=== PATIENT | male | born 1970 | race Caucasian/White ===

== ENCOUNTER 2019-09-16 12:35 | Emergency (ER) | payer MEDICARE ==
[~2019-09-16] VITALS: Ht 185.4 cm; Wt 81.5 kg
--- NOTE | 2019-09-16 13:27 | PHYS DOC ---
General Adult EDM: Chief Complaint: URINARY RETENTION HPI: HPI: 48-year-old male presents from Dr. Barksdale's office with increased peripheral swelling, urinary retention for 24 hours, and no dialysis for 2 weeks. Patient gotten infected central catheter so they removed it and his vascular access for dialysis. He was recently in the hospital at and had 4 L of fluid taken off. He is here today because he is swelling again and he has moderate pain. The abdominal pain is a pressure and cramping sensation. He has been unable to urinate for the last 1 day. He denies fevers or chills. Review of Systems: Review of Systems: Constitutional: Denies fever or chills Eyes: Denies change in visual acuity HENT: Denies nasal congestion or sore throat Respiratory: Denies cough or shortness of breath Cardiovascular: Denies chest pain or edema GI: Generalized abdominal pain.denies nausea, vomiting, bloody stools or diarrhea : Urinary retention Musculoskeletal: Denies back pain or joint pain Integument: Denies rash Neurologic: Denies headache, focal weakness or sensory changes Endocrine: Denies polyuria or polydipsia Lymphatic: Denies swollen glands Psychiatric: Denies depression or anxiety Heart Score: Risk Factors: Risk Factors: DM, Current or recent (<one month) smoker, HTN, HLP, family history of CAD, obesity. Risk Scores: Score 0 - 3: 2.5% MACE over next 6 weeks - Discharge Home Score 4 - 6: 20.3% MACE over next 6 weeks - Admit for Clinical Observation Score 7 - 10: 72.7% MACE over next 6 weeks - Early Invasive Strategies Current Medications: Current Meds: Current Medications Medications (Trade) Dose Ordered Sig/[facility] Start Time Stop Time Status Last Admin Dose Admin Morphine Sulfate (Morphine 4mg Syringe) 4 mg 1X ONCE 09/16/19 13:30 09/16/19 13:31 UNV Ondansetron HCl (Zofran) 4 mg 1X ONCE 09/16/19 13:30 09/16/19 13:31 UNV Allergies: Allergies: Allergies Coded Allergies Type Severity Reaction Last Updated Verified Penicillins Allergy Severe 09/16/19 Yes amoxicillin Allergy Severe 09/16/19 Yes clavulanic acid Allergy Severe 09/16/19 Yes idarubicin Allergy Severe 09/16/19 Yes Physical Exam: PE: Constitutional: Well developed, well nourished, no acute distress, non-toxic appearance. [] HENT: Normocephalic, atraumatic, bilateral external ears normal, oropharynx moist, no oral exudates, nose normal. [] Eyes: PERRLA, EOMI, conjunctiva normal, no discharge. [] Neck: Normal range of motion, no tenderness, supple, no stridor. [] Cardiovascular:Heart rate regular rhythm, no murmur [] Lungs & Thorax: Bilateral breath sounds clear to auscultation [] Abdomen: Bowel sounds normal, soft, abdominal swelling without heart distention, no masses, no pulsatile masses. [] Skin: Warm, dry, no erythema, no rash. [] Back: No tenderness, no CVA tenderness. [] Extremities: No tenderness, no cyanosis, no clubbing, ROM intact, 2+ peripheral edema bilaterally. [] Neurologic: Alert and oriented X 3, normal motor function, normal sensory function, no focal deficits noted. [] Psychologic: Affect normal, judgement normal, mood normal. [] EKG: EKG: Sinus rhythm, rate 90, normal axis, no ST elevations or depressions. [] Radiology/Procedures: Radiology/Procedures: [] Course & Med Decision Making: Course & Med Decision Making Pertinent Labs and Imaging studies reviewed. (See chart for details) The patient's labs are significant for an elevated BNP, creatinine, and BUN. He also has significantly elevated liver enzymes consistent with hepatitis. The patient did finally urinate about a liter without a catheter. He still obviously needs drainage of fluid either by dialysis or paracentesis or both. I spoke with Dr. Jean about the patient and he has accepted him for transfer and admission to [facility]. The patient will go by ambulance. 32 minutes of critical care time was spent on this patient exclusive of other billable procedures. Dragon Disclaimer: DragCell-A-Spot Disclaimer: This electronic medical record was generated, in whole or in part, using a voice recognition dictation system. Departure Departure: Impression: Primary Impression: Urinary retention Additional Impressions: Acute kidney failure Qualified Codes: N17.9 - Acute kidney failure, unspecified Volume overload Qualified Codes: E87.79 - Other fluid overload Hepatitis Disposition: XFER T-FORMERLY [facility] Admitting Physician: Moi Jean Condition: STABLE Referrals: SOLITARIO BARKSDALE MD (PCP) Justification of Admission: Justification of Admission: Justification of Admission Dx: N/A GERMAN PHELAN DO Sep 16, 2019 13:26
[2019-09-16] MEDS ORDERED: MORPHINE SULFATE 4 MG/ML DISP.SYRIN. IV ONE (13:30)
[2019-09-16] MEDS ORDERED: ONDANSETRON PF 4 MG/2 ML VIAL. IVP ONE (13:30)
[2019-09-16 13:36] LABS: BASO # 0.1 x10^3/uL (0.0-0.2); BASO % 1 % (0-3); EOS # 0.2 x10^3/uL (0.0-0.7); EOS % 3 % (0-3); HEMATOCRIT 32.4 % (39.0-53.0); HEMOGLOBIN 10.8 g/dL (13.0-17.5); LYMPH % 18 % (24-48); MEAN CORPUSCULAR HEMOGLOBIN 30 pg (25-35); MEAN CORPUSCULAR HGB CONC 33 g/dL (31-37); MEAN CORPUSCULAR VOLUME 91 fL (79-100); MONO # 0.7 x10^3/uL (0.0-1.1); MONO % 13 % (0-9); NEUT # 3.7 x10^3uL (1.8-7.7); NEUT % 65 % (31-73); PLATELET COUNT 175 x10^3/uL (140-400); RED BLOOD COUNT 3.57 x10^6/uL (4.30-5.70); RED CELL DISTRIBUTION WIDTH 15.7 % (11.5-14.5); WHITE BLOOD COUNT 5.7 x10^3/uL (4.0-11.0)
[2019-09-16 13:48] LABS: CALCIUM 7.9 mg/dL (8.5-10.1); CREATININE 2.3 mg/dL (0.7-1.3); GFR 30.5; POTASSIUM 4.5 mmol/L (3.5-5.1)
[2019-09-16 13:54] LABS: ALBUMIN 2.1 g/dL (3.4-5.0); ALBUMIN/GLOBULIN RATIO 0.5 (1.0-1.7); TOTAL BILIRUBIN 0.2 mg/dL (0.2-1.0); TOTAL PROTEIN 6.1 g/dL (6.4-8.2)
--- NOTE | 2019-09-16 13:58 | EKG ---
[address] [address] Test Date: 2019-09-16 Test Time: 12:43:53 Pat Name: REID ARMENTA Department: Room: Gender: M Emergency Management Consultant: : 1970 Requested By: GERMAN PHELAN Order Number: [id number] Reading MD: Measurements Intervals [place] Rate: 90 P: 27 ME: 166 QRS: 8 QRSD: 80 T: 56 QT: 364 QTc: 449 Interpretive Statements SINUS RHYTHM LEFT ATRIAL ABNORMALITY ABNORMAL ECG RI6.02 No previous ECG available for comparison
[2019-09-16 15:25] LABS: BACTERIA,URINE 0 /HPF (0-FEW); BILIRUBIN,URINE NEG (NEG); CLARITY,URINE CLEAR; COLOR,URINE YELLOW; GLUCOSE,URINE NEG (NEG); NITRITE,URINE NEG (NEG); RBC,URINE OCC /HPF (0-2); UROBILINOGEN,URINE 0.2 mg/dL (0.2 mg/dL); WBC,URINE OCC /HPF (0-4)
[2019-09-16 18:11] VITALS: BP 160/101
== END 2019-09-16 19:07 | disposition short-term general hospital (02) ==
LOC: ER 12:35
DX: N17.9 Acute kidney failure, unspecified (principal); E87.79 Other fluid overload; K75.9 Inflammatory liver disease, unspecified; R33.9 Retention of urine, unspecified; Z88.0 Allergy status to penicillin; Z88.1 Allergy status to other antibiotic agents; Z88.8 Allergy status to other drugs, medicaments and biological substances
CPT/HCPCS: 36415; 80053; 81001; 83880; 84484; 85025; 85610; 85730; 93005; 96374; 96375; 99291; J2270; J2405

== ENCOUNTER 2020-03-29 17:59 | Emergency (ER) | payer MEDICARE ==
[~2020-03-29] VITALS: Ht 185.4 cm; Wt 81.0 kg
[2020-03-29 19:03] LABS: BASO % 1 % (0-3); EOS # 0.4 x10^3/uL (0.0-0.7); EOS % 6 % (0-3); HEMATOCRIT 35.1 % (39.0-53.0); HEMOGLOBIN 11.6 g/dL (13.0-17.5); LYMPH # 1.2 x10^3/uL (1.0-4.8); LYMPH % 20 % (24-48); MEAN CORPUSCULAR HEMOGLOBIN 30 pg (25-35); MEAN CORPUSCULAR HGB CONC 33 g/dL (31-37); MEAN CORPUSCULAR VOLUME 91 fL (79-100); MONO # 0.6 x10^3/uL (0.0-1.1); MONO % 9 % (0-9); NEUT # 3.9 x10^3uL (1.8-7.7); NEUT % 65 % (31-73); PLATELET COUNT 151 x10^3/uL (140-400); RED BLOOD COUNT 3.86 x10^6/uL (4.30-5.70); RED CELL DISTRIBUTION WIDTH 14.3 % (11.5-14.5); WHITE BLOOD COUNT 6.1 x10^3/uL (4.0-11.0)
--- NOTE | 2020-03-29 19:17 | PHYS DOC ---
Past History Past Medical History: Diabetes, High Cholesterol, Hypertension, Renal Failure Additional Past Medical Histor: West Nile Virus, Menengitis, Encephalopathy Past Surgical History: No Surgical History Alcohol Use: None Adult General Chief Complaint Chief Complaint: OTHER COMPLAINTS HPI HPI Patient is a 49-year-old male who presents stating " I need dialysis". 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 He was previously established with nephrology and local primary care physician locally but states he traveled to [place] approximately 2 months ago and suffered extensive hospitalization there. He reports he was septic with "staph and something else" infection and was there for "a few weeks" receiving IV antibi otics. Reports he was discharged approximately 10 days ago from [facility] which is the last time he had hemodialysis. He states he typically has dialysis Thursday and Thursday. He admits increased weight gain, fluid buildup in abdomen and overall malaise. Denies any fever, COVID-19 contact, chest pain, shortness of breath, cough, abdominal pain, urinary symptoms, changes in motor or sensory function. He typically does not make much urine but states his urine production has decreased over the past week. He states he tried to call [facility] nephrology group but given that he has hepatitis B, he is " waiting for an isolation chair... They will not get me in until early March". Review of Systems Review of Systems Fourteen body systems of review of systems have been reviewed. See HPI for pertinent positives and negative responses, other glass all other systems are negative, non-pertinent or non-contributory Allergies Allergies Allergies Coded Allergies Type Severity Reaction Last Updated Verified Penicillins Allergy Severe 09/16/19 Yes amoxicillin Allergy Severe 09/16/19 Yes clavulanic acid Allergy Severe 09/16/19 Yes idarubicin Allergy Severe 09/16/19 Yes Physical Exam Physical Exam Constitutional: Well developed, well nourished, no acute distress, non-toxic appearance. HENT: Normocephalic, atraumatic, bilateral external ears normal, oropharynx moist, no oral exudates, nose normal. Eyes: PERRLA, EOMI, conjunctiva normal, no discharge. Neck: Normal range of motion, no tenderness, supple, no stridor. Cardiovascular: Heart rate regular, sinus rhythm, no murmurs rubs or gallops. Right chest HD cath well-appearing Lungs & Thorax: Bilateral breath sounds clear to auscultation Abdomen: Bowel sounds normal, soft, no tenderness, no masses, no pulsatile masses. Nonsurgical abdomen, no peritoneal signs Skin: Warm, dry, no erythema, no rash. Back: No tenderness, no CVA tenderness. Extremities: No tenderness, no cyanosis, no clubbing, ROM intact, no edema. Neurologic: Alert and oriented X 3, grossly normal motor & sensory function, no focal deficits noted. Psychologic: Anxious affect, judgement normal, depressed mood Current Patient Data Vital Signs Vital Signs Date Time Temp Pulse Resp B/P (MAP) Pulse Ox O2 Delivery O2 Flow Rate FiO2 03/29/20 19:01 98.4 97 22 159/132 (141) 99 Room Air Lab Results Laboratory Tests Test 03/29/20 18:45 White Blood Count 6.1 x10^3/uL Red Blood Count 3.86 x10^6/uL Hemoglobin 11.6 g/dL Hematocrit 35.1 % Mean Corpuscular Volume 91 fL Mean Corpuscular Hemoglobin 30 pg Mean Corpuscular Hemoglobin Concent 33 g/dL Red Cell Distribution Width 14.3 % Platelet Count 151 x10^3/uL Neutrophils (%) (Auto) 65 % Lymphocytes (%) (Auto) 20 % Monocytes (%) (Auto) 9 % Eosinophils (%) (Auto) 6 % Basophils (%) (Auto) 1 % Neutrophils # (Auto) 3.9 x10^3uL Lymphocytes # (Auto) 1.2 x10^3/uL Monocytes # (Auto) 0.6 x10^3/uL Eosinophils # (Auto) 0.4 x10^3/uL Basophils # (Auto) 0.0 x10^3/uL Sodium Level 140 mmol/L Potassium Level 4.7 mmol/L Chloride Level 111 mmol/L Carbon Dioxide Level 22 mmol/L Anion Gap 7 Blood Urea Nitrogen 44 mg/dL Creatinine 3.0 mg/dL Estimated GFR (Cockcroft-Gault) 22.4 BUN/Creatinine Ratio 15 Glucose Level 139 mg/dL Calcium Level 7.8 mg/dL Phosphorus Level 3.7 mg/dL Magnesium Level 1.7 mg/dL Total Bilirubin 0.2 mg/dL Aspartate Amino Transf (AST/SGOT) 60 U/L Alanine Aminotransferase (ALT/SGPT) 58 U/L Alkaline Phosphatase 125 U/L Total Protein 6.4 g/dL Albumin 2.2 g/dL Albumin/Globulin Ratio 0.5 EKG EKG EKG ordered and interpreted by myself at 1904 hrs. as sinus rhythm at 80 bpm, unremarkable intervals, no axis deviation, no peaked T waves, no acute ischemic findings, no STEMI Radiology/Procedures Radiology/Procedures EXAM: CHEST 1 VIEW History: Shortness of breath COMPARISON: None available. TECHNIQUE: Single portable radiograph of the chest FINDINGS: Mild cardiomegaly. Right-sided dialysis catheter is identified. The costophrenic sulci are clear and well demarcated.. Trace right pleural effusion. IMPRESSION: 1. Trace right pleural effusion. 2. Mild cardiomegaly. 3. Right-sided dialysis catheter is identified. Electronically signed by: Josué Gr MD (03/29/2020 8:16 PM) [id number] Heart Score HEART Score for Chest Pain: HEART Score for Chest Pain Response (Comments) Value History Slighlty/Non-Suspicious 0 ECG Normal 0 Age >45 - < 65 1 Risk Factors 1 or 2 Risk Factors 1 Total 2 Risk Factors: Risk Factors: DM, Current or recent (<one month) smoker, HTN, HLP, family history of CAD, obesity. Risk Scores: Risk Factors: DM, Current or recent (<one month) smoker, HTN, HLP, family history of CAD, obesity. Course & Med Decision Making Course & Med Decision Making Discussed with the patient all findings and diagnostic testing. I discussed most likely diagnosis of end-stage renal disease not requiring emergent admission and/or transport to outlying facility for dialysis. I contacted [facility] nephrology group and spoke with Dr. Villegas, case was reviewed and it was recommended that patient present to [facility] ER tomorrow for evaluation, laboratory analysis to be performed similar to what was obtained today with other labs such as hepatitis. Nephrology will be contacted and patient will subsequently be set up for outpatient hemodialysis treatments on a regular basis. I discussed this conversation with patient who remained relatively asymptomatic and hemodynamically stable while in my ER, he was agreeable to discharge with instructions to present to [facility] ER tomorrow for evaluation and further medical management. I did disclose that if any concerning signs or symptoms present prior to [facility] evaluation tomorrow that he should return immediately for repeat evaluation and medical work-up as indicated. Strict return precautions were also discussed at length with good understanding by patient. Patient voiced understanding and agreement with the plan. Hemodynamically stable, ambulatory and well-appearing at time of disposition. Dragon Disclaimer Dragon Disclaimer This electronic medical record was generated, in whole or in part, using a voice recognition dictation system. Departure Departure: Impression: Primary Impression: ESRD (end stage renal disease) Disposition: 01 DC HOME SELF CARE/HOMELESS Condition: GOOD Referrals: SOLITARIO BARKSDALE MD (PCP) Patient Instructions: End Stage Kidney Disease Additional Instructions: As discussed prior to ER departure, you were advised to follow-up with [facility] emergency room tomorrow to get further ER work-up performed so you can be set up with [facility]'s nephrology team and be resimulated back into local hemodialysis unit. As discussed today, your physical exam and entire work-up was grossly nonconcerning for any emergent and/or surgical pathology. With that said, if you experience any decline in your condition please do not hesitate to come back to our ER for repeat evaluation. It was a pleasure to take care of you today and I wish you the best going forward ZAID COATES DO Mar 29, 2020 19:17
[2020-03-29 19:44] LABS: CALCIUM 7.8 mg/dL (8.5-10.1); GFR 22.4; POTASSIUM 4.7 mmol/L (3.5-5.1)
[2020-03-29 19:50] LABS: ALBUMIN 2.2 g/dL (3.4-5.0); ALBUMIN/GLOBULIN RATIO 0.5 (1.0-1.7); MAGNESIUM 1.7 mg/dL (1.8-2.4); PHOSPHORUS 3.7 mg/dL (2.6-4.7); TOTAL BILIRUBIN 0.2 mg/dL (0.2-1.0); TOTAL PROTEIN 6.4 g/dL (6.4-8.2)
--- NOTE | 2020-03-29 20:18 | RAD ---
EXAM: CHEST 1 VIEW History: Shortness of breath COMPARISON: None available. TECHNIQUE: Single portable radiograph of the chest FINDINGS: Mild cardiomegaly. Right-sided dialysis catheter is identified. The costophrenic sulci are clear and well demarcated.. Trace right pleural effusion. IMPRESSION: 1. Trace right pleural effusion. 2. Mild cardiomegaly. 3. Right-sided dialysis catheter is identified. Electronically signed by: Josué Gr MD (03/29/2020 8:16 PM) [id number]
[2020-03-29] MEDS ORDERED: ACETAMINOPHEN 325 MG TABLET PO ONE (20:30)
[2020-03-29 20:35] VITALS: BP 196/104
--- NOTE | 2020-03-29 21:36 | EKG ---
[address] [address] Test Date: 2020-03-29 Test Time: 19:00:22 Pat Name: REID ARMENTA Department: Room: Gender: M Installations Inspector: ANGELICA : 1970 Requested By: ZAID COATES Order Number: [id number] Reading MD: Measurements Intervals [place] Rate: 80 P: 49 [place]: 160 QRS: 14 QRSD: 82 T: 74 QT: 400 QTc: 465 Interpretive Statements SINUS RHYTHM T ABNORMALITY IN HIGH LATERAL LEADS ABNORMAL ECG RI6.02 No previous ECG available for comparison
== END 2020-03-29 20:45 | disposition home or self-care (01) ==
LOC: ER 17:59
DX: N18.6 End stage renal disease (principal); E11.9 Type 2 diabetes mellitus without complications; E78.00 Pure hypercholesterolemia, unspecified; I10 Essential (primary) hypertension; Z88.0 Allergy status to penicillin; Z88.1 Allergy status to other antibiotic agents; Z88.8 Allergy status to other drugs, medicaments and biological substances
CPT/HCPCS: 36415; 71045; 80053; 83735; 84100; 85025; 93005; 99285

== ENCOUNTER 2021-01-15 14:54 | Emergency (ER) | payer MEDICARE ==
[~2021-01-15] VITALS: Ht 185.4 cm; Wt 74.4 kg
[2021-01-15] MEDS ORDERED: IV NORMAL SALINE 1,000ML 1,000 ML IV ONE (15:30)
--- NOTE | 2021-01-15 15:42 | PHYS DOC ---
Past History Past Medical History: Diabetes, High Cholesterol, Hypertension, Renal Failure Additional Past Medical Histor: West Nile Virus, Menengitis, Encephalopathy (BISHNU MONSON APRN) Past Surgical History: No Surgical History (BISHNU MONSON APRN) Alcohol Use: None (BISHNU MONSON APRN) General Adult EDM: Chief Complaint: SHORTNESS OF BREATH HPI: HPI: Patient is a 50-year-old male presents with hematemesis. "I have puked up chunks of blood a couple of times since yesterday". Patient is also reporting shortness of breath. Patient states he has history of PEs and has been out of his Eliquis for a month. History of hypertension, kidney failure, leukemia. (BISHNU MONSON APRN) Review of Systems: Review of Systems: Constitutional: Denies fever or chills Eyes: Denies change in visual acuity HENT: Denies nasal congestion or sore throat Respiratory: Reports shortness of breath. Denies cough. Cardiovascular: Denies chest pain or edema GI: Denies abdominal pain, nausea, vomiting, bloody stools or diarrhea : Denies dysuria Musculoskeletal: Denies back pain or joint pain Integument: Denies rash Neurologic: Denies headache, focal weakness or sensory changes Endocrine: Denies polyuria or polydipsia Lymphatic: Denies swollen glands Psychiatric: Denies depression or anxiety (BISHNU MONSON APRN) Current Medications: Current Meds: Current Medications Medications (Trade) Dose Ordered Sig/[facility] Start Time Stop Time Status Last Admin Dose Admin Sodium Chloride 1,000 ml @ 1,000 mls/hr 1X ONCE 01/15/21 15:30 01/15/21 16:29 (BISHNU MONSON APRN) Allergies: Allergies: Allergies Coded Allergies Type Severity Reaction Last Updated Verified Penicillins Allergy Severe 09/16/19 Yes amoxicillin Allergy Severe 09/16/19 Yes clavulanic acid Allergy Severe 09/16/19 Yes idarubicin Allergy Severe 09/16/19 Yes (BISHNU MONSON APRN) Physical Exam: PE: Constitutional: Well developed, well nourished, no acute distress, non-toxic appearance. [] HENT: Normocephalic, atraumatic, bilateral external ears normal, oropharynx kim [address], no oral exudates, nose normal. [] Eyes: PERRLA, EOMI, conjunctiva normal, no discharge. [] Neck: Normal range of motion, no tenderness, supple, no stridor. [] Cardiovascular:Heart rate sinus tachycardia, no murmur [] Lungs & Thorax: Bilateral breath sounds clear to auscultation [] Abdomen: Bowel sounds normal, soft, no tenderness, no masses, no pulsatile masses. [] Skin: Warm, dry, no erythema, no rash. [] Back: No tenderness, no CVA tenderness. [] Extremities: No tenderness, no cyanosis, no clubbing, ROM intact, no edema. [] Neurologic: Alert and oriented X 3, normal motor function, normal sensory function, no focal deficits noted. [] Psychologic: Affect normal, judgement normal, mood normal. [] (BISHNU MONSON APRN) EKG: EKG: Sinus Tachycardia, 133 BPM, no STEMI, Read by at 1621[] (BISHNU MONSON APRN) Radiology/Procedures: Radiology/Procedures: []XR CHEST 1V CLINICAL INDICATIONS: Shortness of breath COMPARISON: March 29, 2020. Findings: Diffuse bilateral pulmonary edema is seen worse on the right side. Small bilateral pleural effusions are seen. No pneumothorax is evident. Heart size is prominent. Cephalization of pulmonary flow is seen. The mediastinum is unremarkable. Hemodialysis catheter is unchanged in position. IMPRESSION: Moderate CHF or fluid overload. Electronically signed by: Deng Duarte MD (01/15/2021 4:55 PM) [id number] CT angiogram chest with contrast PQRS statement: CT scans at this facility use dose reduction including either automated exposure control, iterative reconstructions, and /or weight based radiation dosing via mA and kV modification when appropriate to reduce radiation dose to as low as reasonably achievable. Contrast: 99 mL Isovue-370 intravenous contrast with 3-D MIP reconstructions of the arteries acquired. HISTORY: Shortness of breath, hypoxia, dialysis. FINDINGS: Surface irregularity of the liver as well as atrophy likely indicate cirrhosis. Mild right pleural effusion. Moderate left pleural effusion. Right jugular dialysis catheter tip right atrium. Mild cardiomegaly. Ascending aorta diameter 3.6 cm. Extensive left coronary calcified plaque. Esophagus unremarkable. There is mild mediastinal and hilar adenopathy largest lymph node subcarinal station measures 2 x 3 cm. Enlarged main pulmonary artery diameter 4.0 cm. Loss of contrast density within the dependent basilar lower lobe pulm onary arterial branches likely indicate small peripheral segmental pulmonary artery emboli. No large central pulmonary artery embolus or saddle embolus. Pulmonary interstitial edema. Groundglass opacities likely alveolar edema. Asymmetric nodular opacities with some areas of consolidation throughout the right lung could be asymmetric edema or multilobar pneumonia. Bones are unremar kable. IMPRESSION: 1. Bilateral lower lobe posterior basilar small segmental pulmonary emboli. No large central pulmonary artery embolus. 2. Left greater than right pleural effusions and pulmonary edema. 3. Asymmetric nodular opacities with areas of consolidation throughout the right lung could represent asymmetric pulmonary edema or multilobar pneumonia. 4. Mediastinal and hilar adenopathy. 5. Other incidental findings as described above. FOR INTERNAL CODING PURPOSES Critical result: Critical results were called to ED physician Dr. Tete Willard by Dr. Mohsen Sexton at 01/15/2021 5:07 PM. RESULT CODE: (C) (BISHNU MONSON APRN) Heart Score: C/O Chest Pain: No Risk Factors: Risk Factors: DM, Current or recent (<one month) smoker, HTN, HLP, family history of CAD, obesity. Risk Scores: Score 0 - 3: 2.5% MACE over next 6 weeks - Discharge Home Score 4 - 6: 20.3% MACE over next 6 weeks - Admit for Clinical Observation Score 7 - 10: 72.7% MACE over next 6 weeks - Early Invasive Strategies (BISHNU MONSON APRN) Course & Med Decision Making: Course & Med Decision Making Pertinent Labs and Imaging studies reviewed. (See chart for details) [] 50-year-old male presents with hematemesis, shortness of breath. Patient states he has had multiple PEs in the past and has been off his Eliquis for a week. Patient is supposed to be getting dialysis 3 days a week, but states he has been unable to get in for one month. Patient has a history of PE's and had to be admitted to the ICU in the past for treatment. BUN 71, Creat 6.4, WBC, 16.8. Hgb 10.1, Hct 31.1. Lactic 2.1. Chest x-ray suspicious for pneumonia and fluid overload. Nitro drip started along with Levofloxacin, Cefepime, and Vancomycin. CTA shows PE, lower left lobe. Heparin drip started/ Discussed results with patient. Explained to patient that he was going to need to be transferred to [facility] for dialysis and anticogulant treatment. Patient agrees with transfer plan. Spoke with Dr. Dempsey at [facility] who is accepting patient in ICU for HAP, PE, CKD, CHF. (BISHNU MONSON APRN) Course & Med Decision Making I personally evaluated this patient and agree with documentation. I supervised the plan of care Critical care time was 35 minutes which includes time at bedside, spent in discussion of patient's care with specialists and/or family members, with interpretation of laboratory and/or radiological studies and is exclusive of procedures. (TETE WILLARD DO) Dragon Disclaimer: Dragjesika Disclaimer: This electronic medical record was generated, in whole or in part, using a voice recognition dictation system. (BISHNU MONSON APRN) Departure Departure: Impression: Primary Impression: HAP (hospital-acquired pneumonia) Additional Impressions: Pulmonary embolism Qualified Codes: I26.99 - Other pulmonary embolism without acute cor pulmonale Chronic kidney disease (CKD) Qualified Codes: N18.6 - End stage renal disease; Z99.2 - Dependence on renal dialysis CHF (congestive heart failure) Qualified Codes: I50.9 - Heart failure, unspecified Disposition: 02 SHORT TERM HOSPITAL Admitting Physician: Other (BISHNU MONSON APRN) Condition: STABLE Referrals: SOLITARIO BARKSDALE MD (PCP) BISHNU MONSON APRN Jan 15, 2021 15:42 TETE WILLARD DO Jan 18, 2021 00:36
[2021-01-15 16:36] LABS: BASO # 0.1 x10^3/uL (0.0-0.2); BASO % 0 % (0-3); EOS % 0 % (0-3); HEMATOCRIT 31.1 % (39.0-53.0); HEMOGLOBIN 10.1 g/dL (13.0-17.5); LYMPH % 6 % (24-48); MEAN CORPUSCULAR HEMOGLOBIN 30 pg (25-35); MEAN CORPUSCULAR HGB CONC 32 g/dL (31-37); MEAN CORPUSCULAR VOLUME 91 fL (79-100); MONO # 1.2 x10^3/uL (0.0-1.1); MONO % 7 % (0-9); NEUT # 14.5 x10^3uL (1.8-7.7); NEUT % 87 % (31-73); PLATELET COUNT 290 x10^3/uL (140-400); RED BLOOD COUNT 3.42 x10^6/uL (4.30-5.70); RED CELL DISTRIBUTION WIDTH 15.9 % (11.5-14.5); WHITE BLOOD COUNT 16.8 x10^3/uL (4.0-11.0)
[2021-01-15 16:39] LABS: CALCIUM 7.9 mg/dL (8.5-10.1); CREATININE 6.4 mg/dL (0.7-1.3); GFR 9.3; POTASSIUM 4.8 mmol/L (3.5-5.1)
--- NOTE | 2021-01-15 16:44 | EKG ---
[address] [address] Test Date: 2021-01-15 Test Time: 16:15:03 Pat Name: REID ARMENTA Department: Room: Gender: M Senior Applications Developer: LEIGHANN : 1970 Requested By: BISHNU MONSON Order Number: [id number] Reading MD: Rob Jurado MD Measurements Intervals [place] Rate: 133 P: 27 [place]: 116 QRS: 7 QRSD: 86 T: 77 QT: 300 QTc: 448 Interpretive Statements SINUS TACHYCARDIA LEFT ATRIAL ABNORMALITY T ABNORMALITY IN HIGH LATERAL LEADS ABNORMAL ECG Electronically Signed On 01-16-2021 17:33:02 CDT by Rob Jurado MD
[2021-01-15 16:45] LABS: ALBUMIN 2.3 g/dL (3.4-5.0); ALBUMIN/GLOBULIN RATIO 0.5 (1.0-1.7); TOTAL PROTEIN 7.4 g/dL (6.4-8.2)
--- NOTE | 2021-01-15 16:58 | RAD ---
XR CHEST 1V CLINICAL INDICATIONS: Shortness of breath COMPARISON: March 29, 2020. Findings: Diffuse bilateral pulmonary edema is seen worse on the right side. Small bilateral pleural effusions are seen. No pneumothorax is evident. Heart size is prominent. Cephalization of pulmonary f low is seen. The mediastinum is unremarkable. Hemodialysis catheter is unchanged in position. IMPRESSION: Moderate CHF or fluid overload. Electronically signed by: Deng Duarte MD (01/15/2021 4:55 PM) [id number]
--- NOTE | 2021-01-15 17:12 | RAD ---
CT angiogram chest with contrast PQRS statement: CT scans at this facility use dose reduction including either automated exposure cont rol, iterative reconstructions, and /or weight based radiation dosing via mA and kV modification when appropriate to reduce radiation dose to as low as reasonably achievable. Contrast: 99 mL Isovue-370 intravenous contrast with 3-D MIP reconstructions of the arteries acquired . HISTORY: Shortness of breath, hypoxia, dialysis. FINDINGS: Surface irregularity of the liver as well as atrophy likely indicate cirrhosis. Mild right pleural effusion. Moderate left pleural effusion. Right jugular dialysis catheter tip right atrium. M ild cardiomegaly. Ascending aorta diameter 3.6 cm. Extensive left coronary calcified plaque. Esophagu s unremarkable. There is mild mediastinal and hilar adenopathy largest lymph node subcarinal station measures 2 x 3 cm. Enlarged main pulmonary artery diameter 4.0 cm. Loss of contrast density within th e dependent basilar lower lobe pulmonary arterial branches likely indicate small peripheral segmental pulmonary artery emboli. No large central pulmonary artery embolus or saddle embolus. Pulmonary inte rstitial edema. Groundglass opacities likely alveolar edema. Asymmetric nodular opacities with some a reas of consolidation throughout the right lung could be asymmetric edema or multilobar pneumonia. Micheal reji are unremarkable. IMPRESSION: 1. Bilateral lower lobe posterior basilar small segmental pulmonary emboli. No large central pulmonar y artery embolus. 2. Left greater than right pleural effusions and pulmonary edema. 3. Asymmetric nodular opacities with areas of consolidation throughout the right lung could represent asymmetric pulmonary edema or multilobar pneumonia. 4. Mediastinal and hilar adenopathy. 5. Other incidental findings as described above. FOR INTERNAL CODING PURPOSES Critical result: Critical results were called to ED physician Dr. Lalo Willard by Dr. Mohsen Sexton at 01/15/2021 5:07 PM. RESULT CODE: (C) Electronically signed by: Tavo Leigh MD (01/15/2021 5:10 PM) [facility]
[2021-01-15] MEDS ORDERED: HEPARIN for IV BOLUS 10,000 UNIT/10 ML VIAL. IV ONE (17:15)
[2021-01-15] MEDS ORDERED: HEPARIN 25,000UTS/250ML PREMIX 250 ML IV PRN (17:15)
[2021-01-15] MEDS ORDERED: HEPARIN for IV BOLUS 10,000 UNIT/10 ML VIAL. IV PRN ×3 (17:15)
[2021-01-15] MEDS ORDERED: IOHEXOL 350 MG/ML 100 ML VIAL. IV ONE (17:15)
[2021-01-15] MEDS ORDERED: IV NORMAL SALINE 50ML 50 ML ONE (17:15)
[2021-01-15] MEDS ORDERED: cefTRIAXone SODIUM 1 GM VIAL ONE (17:15)
[2021-01-15] MEDS ORDERED: NITROGLYCERIN PREMIX 250 ML IV ONE (17:30)
[2021-01-15 17:54] VITALS: BP 202/146
[2021-01-15 18:01] LABS: % LYMPHS 6 % (24-48); % MONOS 6 % (0-10); % SEGS 88 % (35-66); PLT ESTIMATE ADEQUATE (ADEQUATE)
[2021-01-16] MEDS ORDERED: CEFEPIME HCL 1 GM in IV NORMAL SALINE 50ML 50 ML IV SCH (09:00)
== END 2021-01-15 18:40 | disposition short-term general hospital (02) ==
LOC: ER 14:54
DX: J18.9 Pneumonia, unspecified organism (principal); I26.99 Other pulmonary embolism without acute cor pulmonale; E11.22 Type 2 diabetes mellitus with diabetic chronic kidney disease; I12.9 Hypertensive chronic kidney disease with stage 1 through stage 4 chronic kidney disease, or unspecified chronic kidney disease; N18.9 Chronic kidney disease, unspecified; E78.5 Hyperlipidemia, unspecified; Z20.822 Contact with and (suspected) exposure to COVID-19; Y95 Nosocomial condition
CPT/HCPCS: 36415; 71045; 71275; 80053; 83605; 83880; 85007; 85025; 85610; 85730; 86850; 86900; 86901; 87040; 87426; 93005; 96365; 96375; 99285; C9803; J0696; J1644; Q9967; U0003

== ENCOUNTER 2021-04-06 08:24 | Emergency (ER) | payer MEDICARE ==
[~2021-04-06] VITALS: Ht 185.4 cm; Wt 74.4 kg
--- NOTE | 2021-04-06 08:44 | PHYS DOC ---
Past History Past Medical History: Diabetes, High Cholesterol, Hypertension, Renal Failure Additional Past Medical Histor: West Nile Virus, Menengitis, Encephalopathy, leukemia,dialysis, PE Past Surgical History: Other Alcohol Use: None Adult General Chief Complaint Chief Complaint: DIALYSIS PROBLEM HPI HPI Patient is a 50-year-old male presenting via POV requesting dialysis. 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 Reports he has been on dialysis for approximately 1 year, was previously on peritoneal dialysis but recently has been receiving dialysis through right anterior chest HD cath Wednesdays and Fridays. Reports his last day of hemodialysis was 3 days prior at his typical dialysis center managed by [facility]. 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 Reports he went to [facility] yesterday and was seen and evaluated as he missed his dialysis session in the morning and during the middle of the ER visit, it was reported that patient had an open chair at his local HD center and so patient was discharged. He did not make it to said dialysis center for HD. States he called his fisher scallop this morning who advised him that given his level of shortness of breath to present to nearest ER for evaluation prompting him to come here. Patient knew that [facility] did not have dialysis capabilities but checked in stating that " you guys can just transfer me". States he has been at baseline health otherwise, he is not vaccinated against COVID-19 Review of Systems Review of Systems Fourteen body systems of review of systems have been reviewed. See HPI for pertinent positives and negative responses, other glass all other systems are negative, non-pertinent or non-contributory Allergies Allergies Allergies Coded Allergies Type Severity Reaction Last Updated Verified Penicillins Allergy Severe 09/16/19 Yes amoxicillin Allergy Severe 09/16/19 Yes clavulanic acid Allergy Severe 09/16/19 Yes idarubicin Allergy Severe 09/16/19 Yes Physical Exam Physical Exam Constitutional: Appears older than stated age, in moderate respiratory distress due to anxiety/hyperventilation HENT: Normocephalic, atraumatic, bilateral external ears normal, oropharynx moist, no oral exudates, nose normal. Eyes: PERRLA, EOMI, conjunctiva normal, no discharge. Neck: Normal range of motion, no tenderness, supple, no stridor. Cardiovascular: Heart rate regular, sinus rhythm, no murmurs rubs or gallops, HD cath present to right anterior chest Lungs & Thorax: Tachypneic with increased work of breathing, bibasilar crackles present Abdomen: Bowel sounds normal, soft, no tenderness, no masses, no pulsatile masses. Nonsurgical abdomen, no peritoneal signs Skin: Warm, dry, no erythema, no rash. There is significant ecchymosis around bili from reported peritoneal dialysis Back: No tenderness, no CVA tenderness. Extremities: No tenderness, no cyanosis, no clubbing, ROM intact, no edema. Neurologic: Alert and oriented X 3, grossly normal motor & sensory function, no focal deficits noted. Psychologic: Anxious affect and mood Current Patient Data Vital Signs Vital Signs Date Time Temp Pulse Resp B/P (MAP) Pulse Ox O2 Delivery O2 Flow Rate FiO2 04/06/21 08:24 100.6 120 60 180/119 (139) 100 Nasal Cannula 4.0 Vital Signs Date Time Temp Pulse Resp B/P (MAP) Pulse Ox O2 Delivery O2 Flow Rate FiO2 04/06/21 11:01 118 172/125 04/06/21 08:24 100.6 60 100 Nasal Cannula 4.0 Lab Results Laboratory Tests Test 04/06/21 08:57 04/06/21 10:15 Influenza Type A (Rapid) Negative Influenza Type B (Rapid) Negative SARS-CoV-2 Antigen (Rapid) Positive White Blood Count 4.4 x10^3/uL Red Blood Count 2.84 x10^6/uL Hemoglobin 8.0 g/dL Hematocrit 25.0 % Mean Corpuscular Volume 88 fL Mean Corpuscular Hemoglobin 28 pg Mean Corpuscular Hemoglobin Concent 32 g/dL Red Cell Distribution Width 15.6 % Platelet Count 156 x10^3/uL Neutrophils (%) (Auto) 80 % Lymphocytes (%) (Auto) 9 % Monocytes (%) (Auto) 7 % Eosinophils (%) (Auto) 4 % Basophils (%) (Auto) 1 % Neutrophils # (Auto) 3.5 x10^3uL Lymphocytes # (Auto) 0.4 x10^3/uL Monocytes # (Auto) 0.3 x10^3/uL Eosinophils # (Auto) 0.2 x10^3/uL Basophils # (Auto) 0.0 x10^3/uL Bedside Venous pH 7.40 Bedside Venous pCO2 34 mmHg Bedside Venous pO2 50 mmHg Venous Blood HCO3 21 mmol/L POC Venous O2 Saturation (Paul) 85 % Bedside FiO2 21 Sodium Level 139 mmol/L Potassium Level 4.2 mmol/L Chloride Level 105 mmol/L Carbon Dioxide Level 22 mmol/L Anion Gap 12 Blood Urea Nitrogen 47 mg/dL Creatinine 5.4 mg/dL Estimated GFR (Cockcroft-Gault) 11.3 BUN/Creatinine Ratio 9 Glucose Level 95 mg/dL Lactic Acid Level 1.4 mmol/L Calcium Level 7.3 mg/dL Phosphorus Level 5.1 mg/dL Magnesium Level 1.9 mg/dL Total Bilirubin 0.6 mg/dL Aspartate Amino Transf (AST/SGOT) 53 U/L Alanine Aminotransferase (ALT/SGPT) 51 U/L Alkaline Phosphatase 130 U/L Troponin I High Sensitivity 54 ng/L [id number] Natriuretic Peptide > 56035 pg/mL Total Protein 6.4 g/dL Albumin 2.4 g/dL Albumin/Globulin Ratio 0.6 Current Medications Medications (Trade) Dose Ordered Sig/Skyla Route PRN Reason Start Time Stop Time Status Last Admin Dose Admin Acetaminophen (Tylenol) 1,000 mg 1X ONCE PO 04/06/21 09:15 04/06/21 09:16 DC 04/06/21 11:00 Clonidine HCl (Catapres) 0.1 mg 1X ONCE PO 04/06/21 09:30 04/06/21 09:33 DC Lorazepam (Ativan) 1 mg 1X ONCE PO 04/06/21 09:30 04/06/21 09:36 DC Nitroglycerin (Nitrostat) 0.4 mg PRN Q5MIN PRN SL CHEST PAIN 04/06/21 09:45 04/06/21 11:01 Dexamethasone Sodium Phosphate (Decadron) 6 mg 1X ONCE IVP 04/06/21 11:30 04/06/21 11:31 DC Azithromycin 500 mg/Sodium Chloride 250 ml @ 250 mls/hr 1X ONCE IV 04/06/21 11:30 04/06/21 12:29 DC EKG EKG EKG ordered and interpreted by myself at 1117 hrs. a sinus tachycardia at 113 bpm, unremarkable intervals, no axis deviation, T wave inversion in lead III otherwise no acute ischemic findings, no STEMI Radiology/Procedures Radiology/Procedures AP portable chest radiograph 04/06/2021 Clinical History: Shortness of breath. An AP erect portable digital radiograph of the chest was obtained. Comparison study is dated 01/15/2021. A right internal jugular large bore dual-lumen central venous catheter is unchanged in position. The cardiac silhouette is mildly enlarged. The thoracic aorta is tortuous. Bilateral perihilar infiltrates are seen which likely reflect pulmonary edema. There are small bilateral pleural effusions which have increased sincethe previous examination. No pneumothorax is noted. The osseous structures are unchanged. Impression: Bilateral perihilar infiltrates are seen which likely reflect pulmonary edema. There are small bilateral pleural effusions. Electronically signed by: Mohsen Sexton MD (04/06/2021 9:37 AM) [id number] Heart Score C/O Chest Pain: No HEART Score for Chest Pain: HEART Score for Chest Pain Response (Comments) Value History Slighlty/Non-Suspicious 0 ECG Nonspecific Repolarizatio 1 Age >45 - < 65 1 Risk Factors >3 Risk Factors or Hx CAD 2 Troponin < Normal Limit 0 Total 4 Risk Factors: Risk Factors: DM, Current or recent (<one month) smoker, HTN, HLP, family history of CAD, obesity. Risk Scores: Risk Factors: DM, Current or recent (<one month) smoker, HTN, HLP, family history of CAD, obesity. Course & Med Decision Making Course & Med Decision Making Airway patent, breathing labored, IV access and vitals obtained concerning for tachycardia, tachypnea, hypertension, and fever and an anxious patient hyperventilating on arrival HPI physical exam and comprehensive ER work-up obtained concerning for COVID-19 infection in an unvaccinated individual. Clinically fluid overloaded with last reported hemodialysis session 4 days prior Patient's presentation and hemodynamics improved with administered Tylenol, nitro, and application of BiPAP which he uses at home Patient a hard stick and after numerous peripheral attempts, patient deferred any more attempts. I contacted the patient's home facility, [facility] and discussed need for transfer given patient's complicated history of positive hep B status, newly found COVID-19 infection, and liver cancer which patient cannot disclose type/severity. [facility] at capacity I disclosed with patient need for IV access so I can administer further medications and treat patient while pending hospital transfer. Patient deferred IO, patient states he does not want a central line if hospital transfer will not be timely I advised patient that our facility is working on finding a hospital transfer for him and notified him that [facility], [facility], [facility] and [facility] systems that had been called were all full but we will keep calling and use [place] control Patient unhappy. Patient inquires about leaving " and just call an ambulance to go to another facility". I advised I would not recommend this and he would have to leave AGAINST MEDICAL ADVICE with risk of likely . He states he will if he is kept here because we do not have HD Patient states that he wanted to call and contact his cousin to discuss proposed plan of care that included central line placement and continued inpatient ER care with plans for eventual transfer to HD capable facility Nonetheless, I was notified by nursing staff that on evaluation less than 10 minutes after I had left the room, patient had removed BiPAP and eloped from ER. Attempts were made to retrieve patient and bryant back in ER room but patient was seen leaving premises with cousin Local ERs notified of patient as I suspect patient is likely being transported to either [facility] or [facility] or [facility]. locations Critical Care Time This patient required critical care. Due to the fact that the patient required a significant amount of one on one physician - patient contact time, ordering and review of studies, arranging urgent treatment with development of a management plan, evaluation of patients response to treatment with frequent reassessments, and discussions with other providers this patient required 35 minutes of critical care time. Critical care time was indicated due to the inherent instability and/or potential for instability in this patient. The critical care time that is allocated to this patient is above and beyond any time spent on any other billable procedures performed on this patient. Dragon Disclaimer Dragon Disclaimer This electronic medical record was generated, in whole or in part, using a voice recognition dictation system. Departure Departure: Impression: Primary Impression: COVID-19 Additional Impressions: ESRD (end stage renal disease) on dialysis CHF (congestive heart failure) Sepsis Left against medical advice Disposition: 07 LEFT AGAINST MEDICAL ADVICE Condition: GUARDED Referrals: SOLITARIO BARKSDALE MD (PCP) Problem Qualifiers ZAID COATSE DO Apr 06, 2021 08:44
[2021-04-06] MEDS ORDERED: ACETAMINOPHEN 500 MG TABLET PO ONE (09:15)
[2021-04-06] MEDS ORDERED: LORazepam 1 MG TABLET PO ONE (09:30)
[2021-04-06] MEDS ORDERED: cloNIDine HCL 0.1 MG TABLET PO ONE (09:30)
--- NOTE | 2021-04-06 09:39 | RAD ---
AP portable chest radiograph 04/06/2021 Clinical History: Shortness of breath. An AP erect portable digital radiograph of the chest was obtained. Comparison study is dated 01/15/2021. A right internal jugular large bore dual-lumen central venous catheter is unchanged in position. The cardiac silhouette is mildly enlarged. The thoracic aorta is tortuous. Bilateral perihilar infiltrate s are seen which likely reflect pulmonary edema. There are small bilateral pleural effusions which kim ve increased sincethe previous examination. No pneumothorax is noted. The osseous structures are unc hanged. Impression: Bilateral perihilar infiltrates are seen which likely reflect pulmonary edema. There are small bilateral pleural effusions. Electronically signed by: Mohsen Sexton MD (04/06/2021 9:37 AM) [id number]
[2021-04-06] MEDS ORDERED: NITROGLYCERIN SUBLINGUAL 0.4 MG BOTTLE OF 25. SL PRN (09:45)
[2021-04-06 10:00] LABS: INFLUENZA A PATIENT NEGATIVE (NEGATIVE); INFLUENZA B PATIENT NEGATIVE (NEGATIVE)
[2021-04-06 11:05] LABS: BASO % 1 % (0-3); EOS # 0.2 x10^3/uL (0.0-0.7); EOS % 4 % (0-3); LYMPH # 0.4 x10^3/uL (1.0-4.8); LYMPH % 9 % (24-48); MEAN CORPUSCULAR HEMOGLOBIN 28 pg (25-35); MEAN CORPUSCULAR HGB CONC 32 g/dL (31-37); MEAN CORPUSCULAR VOLUME 88 fL (79-100); MONO # 0.3 x10^3/uL (0.0-1.1); MONO % 7 % (0-9); NEUT # 3.5 x10^3uL (1.8-7.7); NEUT % 80 % (31-73); PLATELET COUNT 156 x10^3/uL (140-400); RED BLOOD COUNT 2.84 x10^6/uL (4.30-5.70); RED CELL DISTRIBUTION WIDTH 15.6 % (11.5-14.5); WHITE BLOOD COUNT 4.4 x10^3/uL (4.0-11.0)
[2021-04-06 11:16] LABS: ANION GAP 12 (6-14); BLOOD UREA NITROGEN 47 mg/dL (8-26); BUN/CREATININE RATIO 9 (6-20); CALCIUM 7.3 mg/dL (8.5-10.1); CARBON DIOXIDE 22 mmol/L (21-32); CHLORIDE 105 mmol/L (98-107); CREATININE 5.4 mg/dL (0.7-1.3); GFR 11.3; GLUCOSE 95 mg/dL (70-99); POTASSIUM 4.2 mmol/L (3.5-5.1); SODIUM 139 mmol/L (136-145)
--- NOTE | 2021-04-06 11:16 | EKG ---
[address] [address] Test Date: 2021-04-06 Test Time: 11:13:22 Pat Name: REID ARMENTA Department: Room: Gender: M Consulting Nurse: STEPHANY : 1970 Requested By: ZAID COATES Order Number: [id number] Reading MD: Measurements Intervals [place] Rate: 113 P: 25 MS: 156 QRS: 24 QRSD: 84 T: 71 QT: 346 QTc: 474 Interpretive Statements SINUS TACHYCARDIA OTHERWISE NORMAL ECG RI6.02 No previous ECG available for comparison
[2021-04-06 11:29] LABS: ALBUMIN 2.4 g/dL (3.4-5.0); ALBUMIN/GLOBULIN RATIO 0.6 (1.0-1.7); ALK PHOS 130 U/L (46-116); ALT (SGPT) 51 U/L (16-63); AST (SGOT) 53 U/L (15-37); MAGNESIUM 1.9 mg/dL (1.8-2.4); PHOSPHORUS 5.1 mg/dL (2.6-4.7); TOTAL BILIRUBIN 0.6 mg/dL (0.2-1.0); TOTAL PROTEIN 6.4 g/dL (6.4-8.2)
[2021-04-06] MEDS ORDERED: AZITHROMYCIN 500 MG in IV NORMAL SALINE 250ML 250 ML IV ONE (11:30)
[2021-04-06] MEDS ORDERED: DEXAMETHASONE SOD PHOS 4 MG/ML VIAL. IVP ONE (11:30)
[2021-04-06 14:00] VITALS: BP 154/96
== END 2021-04-06 15:00 | disposition left against medical advice (07) ==
LOC: ER 08:24
DX: U07.1 COVID-19 (principal); A41.9 Sepsis, unspecified organism; I13.2 Hypertensive heart and chronic kidney disease with heart failure and with stage 5 chronic kidney disease, or end stage renal disease; E11.22 Type 2 diabetes mellitus with diabetic chronic kidney disease; N18.6 End stage renal disease; I50.9 Heart failure, unspecified; E78.00 Pure hypercholesterolemia, unspecified; Z99.2 Dependence on renal dialysis; Z88.0 Allergy status to penicillin; Z88.1 Allergy status to other antibiotic agents
CPT/HCPCS: 71045; 80053; 82803; 83605; 83735; 83880; 84100; 84484; 85025; 87040; 93005; 94660; 99291; C9803; U0003